=== PATIENT | female | born 1965 | race Two or more races ===

== ENCOUNTER 2022-03-14 11:23 | Inpatient (IN) | payer MEDICARE, MEDICAID ==
[~2022-03-14] VITALS: Ht 162.6 cm; Wt 59.9 kg
[~2022-03-14 11:23] MED LIST: ALBU18HF2 IH; ATROV IH; CRES10 PO; DOXY150T9 MT; FAMO20TA8 PO; HYDR-4009 MT; HYDR25TA PO; LEVO-65 MT; LIDO5CRE18 TP; LOSA50TA41 PO; METF-414 PO; METH-372 MT; METH500T PO; MORP15TA67 MT; P20 MT; PROM6.254 MT; [UNRECOGNIZED DRUG - OTHER] IM
[2022-03-14] MEDS ORDERED: ALBUTEROL (0.083%) 2.5MG/3ML NEB HHN STA (11:56)
[2022-03-14] MEDS ORDERED: METHYLPREDNISOLONE SOD SUCC 125 MG/2 ML VIAL IV STA (11:56)
[2022-03-14] MEDS ORDERED: MAGNESIUM 2 G PREMIX 50 ML IV STA (11:56)
[2022-03-14] MEDS ORDERED: IPRATROPIUM BROMIDE (0.02%) 0.5MG/2.5ML NEB HHN STA (11:56)
[2022-03-14 13:16] LABS: BASOPHILS % 0.3 % (0.0-2.0); EOSINOPHILS % 0.1 % (0.0-5.0); HEMATOCRIT. 45.7 % (36.0-48.0); HEMOGLOBIN. 15.3 g/dL (12.0-16.0); LYMPHOCYTES % 7.5 % (20.0-50.0); MEAN CORPUSCULAR VOLUME 95.5 fL (81.0-99.0); MEAN PLATELET VOLUME 9.2 fl (7.4-10.4); MONOCYTES % 2.7 % (2.0-8.0); NEUTROPHILS % 89.4 % (40.0-76.0); PLATELET 165 x1000/uL (130-400); RED BLOOD CELL COUNT 4.79 mill/uL (4.2-5.4); RED CELL DISTRIBUTION WIDTH 13.2 % (11.6-14.6)
[2022-03-14 13:29] LABS: CHLORIDE 105 mEq/L (98-107)
[2022-03-14 15:10] LABS: BG BASE EXCESS -0.5 mmol/L (-2.0-2.0); BG CARBOXYHEMOGLOBIN 1.3 % (0.5-1.5); BG DEOXYHEMOGLOBIN 9.2 % (0.0-5.0); BG FRACTION INSPIRED OXYGEN 21; BG HCO3 ACT 22.3 mmol/L (22.0-26.0); BG METHEMOGLOBIN 0.3 % (0.0-1.5); BG OXYGEN SATURATION 90.7 % (92.0-98.5); BG OXYHEMOGLOBIN 89.2 % (94.0-97.0); BG PCO2 31.8 mmHg (35.0-45.0); BG PH 7.463 (7.350-7.450); BG PO2 55.9 mmHg (75.0-100.0); BG SAMPLE SITE RIGHT RADIAL; BG TOTAL HEMOGLOBIN 15.5 g/dL (12.0-18.0); BG VENT MODE ROOM AIR
[2022-03-14] MEDS ORDERED: ALBUTEROL (0.083%) 2.5MG/3ML NEB HHN ONE (15:30)
[2022-03-14] MEDS ORDERED: ACETAMINOPHEN 325MG TABLET PO ONE (15:30)
[2022-03-14] MEDS ORDERED: DOCUSATE SODIUM 100MG CAPSULE PO PRN (16:45)
[2022-03-14] MEDS ORDERED: ACETAMINOPHEN 325MG TABLET PO PRN (16:45)
[2022-03-14] MEDS ORDERED: IPRATROPIUM/ALBUTEROL 0.5-3(2.5)MG/3ML NEB HHN PRN (16:45)
[2022-03-14] MEDS ORDERED: ONDANSETRON HCL 4MG/2ML INJ IV PRN (16:45)
[2022-03-14] MEDS ORDERED: KETOROLAC 15MG/ML VIAL IV NR (17:00)
[2022-03-14] MEDS ORDERED: KETOROLAC 15MG/ML VIAL IV ONE (17:00)
[2022-03-14] MEDS ORDERED: LEVOFLOXACIN 500MG PREMIX 100 ML IV SCH (18:00)
[2022-03-14] MEDS: METHYLPREDNISOLONE SOD SUCC 125 MG/2 ML VIAL IV SCH ×2 (19:07→22:46)
[2022-03-14] MEDS: AMLODIPINE 10MG TABLET PO SCH (19:07)
[2022-03-14] MEDS: ENOXAPARIN 40MG/0.4ML SYR SUBCUT SCH (21:47)
[2022-03-15 04:33] LABS: BASOPHILS % 0.3 % (0.0-2.0); HEMATOCRIT. 41.4 % (36.0-48.0); HEMOGLOBIN. 14.1 g/dL (12.0-16.0); LYMPHOCYTES % 8.9 % (20.0-50.0); MEAN CORPUSCULAR HEMOGLOBIN 32.5 pg (28.0-32.0); MEAN CORPUSCULAR VOLUME 95.3 fL (81.0-99.0); MEAN PLATELET VOLUME 9.1 fl (7.4-10.4); MONOCYTES % 2.9 % (2.0-8.0); NEUTROPHILS % 87.9 % (40.0-76.0); PLATELET 162 x1000/uL (130-400); RED BLOOD CELL COUNT 4.34 mill/uL (4.2-5.4); RED CELL DISTRIBUTION WIDTH 13.4 % (11.6-14.6)
[2022-03-15 04:41] LABS: CHLORIDE 109 mEq/L (98-107)
[2022-03-15] MEDS: METHYLPREDNISOLONE SOD SUCC 125 MG/2 ML VIAL IV SCH ×4 (04:45→21:52)
[2022-03-15 04:52] LABS: HDL CHOLESTEROL 68 mg/dL (40-59); LDL CHOLESTEROL 107 mg/dL (5-100)
[2022-03-15] MEDS ORDERED: NALOXONE HCL 0.4MG/ML VIAL IV PRN (10:15)
[2022-03-15] MEDS: NICOTINE 21MG PATCH TD SCH (10:58)
[2022-03-15] MEDS: HYDROCHLOROTHIAZIDE 25MG TABLET PO SCH (11:04)
[2022-03-15] MEDS: METHIMAZOLE 5MG TABLET PO SCH (11:04)
[2022-03-15] MEDS: FAMOTIDINE 20MG TABLET PO SCH ×2 (11:04→18:14)
[2022-03-15] MEDS: AMLODIPINE 10MG TABLET PO SCH (11:04)
[2022-03-15] MEDS: LOSARTAN POTASSIUM 50 MG TABLET PO SCH (11:05)
[2022-03-15 11:28] VITALS: BP 135/43
[2022-03-15] MEDS: BENZONATATE 100MG CAPSULE PO PRN ×2 (11:49→21:50)
[2022-03-15] MEDS: TRAMADOL 50MG TABLET PO PRN ×2 (11:51→18:44)
[2022-03-15] MEDS ORDERED: IRBE150T24 PO (12:36)
[2022-03-15 16:00] VITALS: BP 118/60
[2022-03-15] MEDS: LEVOFLOXACIN 500MG PREMIX 100 ML IV SCH (18:13)
[2022-03-15] MEDS: GUAIFENESIN 200MG/10ML SUGAR FREE UDC PO PRN (18:45)
[2022-03-15 20:00] VITALS: BP 133/76
[2022-03-15] MEDS ORDERED: DEXTROSE 50% WATER 50ML SYRINGE IV PRN (20:30)
[2022-03-15] MEDS: ENOXAPARIN 40MG/0.4ML SYR SUBCUT SCH (21:50)
[2022-03-15] MEDS: INSULIN LISPRO 100 UNITS/ML SUBCUT SCH (21:50)
[2022-03-15] MEDS: BLOOD SUGAR DIAGNOSTIC STRIP TEST SCH (21:51)
[2022-03-16] VITALS: BP 130/63
[2022-03-16] MEDS: IPRATROPIUM/ALBUTEROL 0.5-3(2.5)MG/3ML NEB HHN SCH ×4 (01:57→20:08)
[2022-03-16] MEDS: TRAMADOL 50MG TABLET PO PRN ×3 (02:05→18:14)
[2022-03-16 04:00] VITALS: BP 132/65
[2022-03-16] MEDS: METHYLPREDNISOLONE SOD SUCC 125 MG/2 ML VIAL IV SCH ×4 (04:28→22:45)
[2022-03-16] MEDS: MAGNESIUM/ALUMINUM HYDROXIDE/SIMETHICONE 30ML UDC PO PRN (04:36)
[2022-03-16 08:00] VITALS: BP 111/64
[2022-03-16] MEDS: BLOOD SUGAR DIAGNOSTIC STRIP TEST SCH ×4 (08:00→22:00)
[2022-03-16] MEDS: AMLODIPINE 10MG TABLET PO SCH (09:00)
[2022-03-16] MEDS: HYDROCHLOROTHIAZIDE 25MG TABLET PO SCH (09:00)
[2022-03-16] MEDS: LOSARTAN POTASSIUM 50 MG TABLET PO SCH (09:00)
[2022-03-16] MEDS: METHIMAZOLE 5MG TABLET PO SCH (10:23)
[2022-03-16] MEDS: FAMOTIDINE 20MG TABLET PO SCH ×2 (10:24→18:00)
[2022-03-16] MEDS: NICOTINE 21MG PATCH TD SCH (10:32)
[2022-03-16] MEDS: GUAIFENESIN 200MG/10ML SUGAR FREE UDC PO PRN ×2 (10:57→18:00)
[2022-03-16 12:00] VITALS: BP 129/65
[2022-03-16] MEDS: INSULIN LISPRO 100 UNITS/ML SUBCUT SCH ×3 (13:36→22:47)
[2022-03-16 16:00] VITALS: BP 108/53
[2022-03-16] MEDS: MONTELUKAST SODIUM 10MG TABLET PO SCH (18:01)
[2022-03-16] MEDS: LEVOFLOXACIN 500MG PREMIX 100 ML IV SCH (18:14)
[2022-03-16 20:00] VITALS: BP 134/57
[2022-03-16] MEDS ORDERED: GUAIFENESIN/CODEINE 100-10MG/5ML UDC PO PRN (21:15)
[2022-03-16] MEDS: ENOXAPARIN 40MG/0.4ML SYR SUBCUT SCH (22:46)
[2022-03-16] MEDS: BENZONATATE 100MG CAPSULE PO PRN (23:41)
[2022-03-16] MEDS: GUAIFENESIN/CODEINE 200-20MG/10ML UDC PO PRN (23:45)
[2022-03-17] VITALS (7 sets, daily range): BP systolic 109–134; BP diastolic 45–64
[2022-03-17] MEDS: IPRATROPIUM/ALBUTEROL 0.5-3(2.5)MG/3ML NEB HHN SCH ×6 (00:15→21:25)
[2022-03-17] MEDS: TRAMADOL 50MG TABLET PO PRN ×3 (02:20→19:37)
[2022-03-17] MEDS: METHYLPREDNISOLONE SOD SUCC 125 MG/2 ML VIAL IV SCH ×5 (03:52→22:33)
[2022-03-17] MEDS: BLOOD SUGAR DIAGNOSTIC STRIP TEST SCH ×4 (07:40→22:33)
[2022-03-17] MEDS: INSULIN LISPRO 100 UNITS/ML SUBCUT SCH ×4 (08:10→22:30)
[2022-03-17] MEDS: LOSARTAN POTASSIUM 50 MG TABLET PO SCH (09:29)
[2022-03-17] MEDS: HYDROCHLOROTHIAZIDE 25MG TABLET PO SCH (09:29)
[2022-03-17] MEDS: NICOTINE 21MG PATCH TD SCH (09:29)
[2022-03-17] MEDS: AMLODIPINE 10MG TABLET PO SCH (09:29)
[2022-03-17] MEDS: METHIMAZOLE 5MG TABLET PO SCH (09:29)
[2022-03-17] MEDS: FAMOTIDINE 20MG TABLET PO SCH ×2 (09:29→16:42)
[2022-03-17] MEDS: LEVOFLOXACIN 500MG TABLET PO SCH (13:26)
[2022-03-17] MEDS: MONTELUKAST SODIUM 10MG TABLET PO SCH (16:42)
[2022-03-17] MEDS: GUAIFENESIN/CODEINE 200-20MG/10ML UDC PO PRN ×2 (16:42→22:49)
[2022-03-17] MEDS: ENOXAPARIN 40MG/0.4ML SYR SUBCUT SCH (22:31)
[2022-03-17] MEDS: BENZONATATE 100MG CAPSULE PO PRN (22:31)
[2022-03-18] VITALS: BP 107/57
[2022-03-18] MEDS: IPRATROPIUM/ALBUTEROL 0.5-3(2.5)MG/3ML NEB HHN SCH ×6 (00:45→21:29)
[2022-03-18 04:00] VITALS: BP 121/56
[2022-03-18] MEDS: METHYLPREDNISOLONE SOD SUCC 125 MG/2 ML VIAL IV SCH ×4 (04:17→22:27)
[2022-03-18] MEDS: TRAMADOL 50MG TABLET PO PRN ×3 (04:31→20:17)
[2022-03-18] MEDS: BLOOD SUGAR DIAGNOSTIC STRIP TEST SCH ×4 (06:00→20:18)
[2022-03-18 08:00] VITALS: BP 109/54
[2022-03-18 08:32] LABS: BG BASE EXCESS 1.6 mmol/L (-2.0-2.0); BG CARBOXYHEMOGLOBIN 0.3 % (0.5-1.5); BG DEOXYHEMOGLOBIN 2.3 % (0.0-5.0); BG FRACTION INSPIRED OXYGEN 32; BG HCO3 ACT 26.2 mmol/L (22.0-26.0); BG METHEMOGLOBIN 0.3 % (0.0-1.5); BG OXYGEN SATURATION 97.7 % (92.0-98.5); BG OXYHEMOGLOBIN 97.1 % (94.0-97.0); BG PCO2 40.9 mmHg (35.0-45.0); BG PH 7.424 (7.350-7.450); BG PO2 100.6 mmHg (75.0-100.0); BG SAMPLE SITE LEFT RADIAL; BG TOTAL HEMOGLOBIN 14.9 g/dL (12.0-18.0); BG VENT MODE NASAL CANNULA
[2022-03-18] MEDS: METHIMAZOLE 5MG TABLET PO SCH (09:16)
[2022-03-18] MEDS: FAMOTIDINE 20MG TABLET PO SCH ×2 (09:16→18:38)
[2022-03-18] MEDS: GUAIFENESIN/CODEINE 200-20MG/10ML UDC PO PRN ×2 (09:16→19:41)
[2022-03-18] MEDS: LEVOFLOXACIN 500MG TABLET PO SCH (09:16)
[2022-03-18] MEDS: HYDROCHLOROTHIAZIDE 25MG TABLET PO SCH (09:16)
[2022-03-18] MEDS: LOSARTAN POTASSIUM 50 MG TABLET PO SCH (09:16)
[2022-03-18] MEDS: AMLODIPINE 10MG TABLET PO SCH (09:17)
[2022-03-18] MEDS: NICOTINE 21MG PATCH TD SCH (09:18)
[2022-03-18] MEDS: INSULIN LISPRO 100 UNITS/ML SUBCUT SCH ×4 (09:19→20:18)
[2022-03-18 12:00] VITALS: BP 106/46
[2022-03-18] MEDS: BENZONATATE 100MG CAPSULE PO PRN (15:55)
[2022-03-18 16:00] VITALS: BP 107/40
[2022-03-18] MEDS: MONTELUKAST SODIUM 10MG TABLET PO SCH (18:38)
[2022-03-18 20:00] VITALS: BP 104/60
[2022-03-18] MEDS: ENOXAPARIN 40MG/0.4ML SYR SUBCUT SCH (20:17)
[2022-03-18] MEDS ORDERED: TERBUTALINE SULFATE 1MG/ML VIAL SUBCUT NR (20:30)
[2022-03-19] VITALS: BP 110/49
[2022-03-19] MEDS: IPRATROPIUM/ALBUTEROL 0.5-3(2.5)MG/3ML NEB HHN SCH ×6 (01:31→20:42)
[2022-03-19] MEDS: GUAIFENESIN/CODEINE 200-20MG/10ML UDC PO PRN ×3 (01:54→17:03)
[2022-03-19 04:00] VITALS: BP 102/61
[2022-03-19] MEDS: TRAMADOL 50MG TABLET PO PRN ×3 (05:54→20:27)
[2022-03-19] MEDS: METHYLPREDNISOLONE SOD SUCC 125 MG/2 ML VIAL IV SCH ×2 (05:54→09:09)
[2022-03-19] MEDS: INSULIN LISPRO 100 UNITS/ML SUBCUT SCH ×4 (05:56→20:28)
[2022-03-19] MEDS: BLOOD SUGAR DIAGNOSTIC STRIP TEST SCH ×4 (05:56→20:27)
[2022-03-19] MEDS: BENZONATATE 100MG CAPSULE PO PRN ×3 (06:02→20:27)
[2022-03-19 08:00] VITALS: BP 96/45
[2022-03-19] MEDS: HYDROCHLOROTHIAZIDE 25MG TABLET PO SCH (09:00)
[2022-03-19] MEDS: AMLODIPINE 10MG TABLET PO SCH (09:00)
[2022-03-19] MEDS: LOSARTAN POTASSIUM 50 MG TABLET PO SCH (09:00)
[2022-03-19] MEDS: METHIMAZOLE 5MG TABLET PO SCH (09:02)
[2022-03-19] MEDS: FAMOTIDINE 20MG TABLET PO SCH ×2 (09:02→17:03)
[2022-03-19] MEDS: NICOTINE 21MG PATCH TD SCH (09:03)
[2022-03-19] MEDS ORDERED: PRED10TA MT (10:35)
[2022-03-19 12:00] VITALS: BP 110/60
[2022-03-19 16:00] VITALS: BP 96/55
[2022-03-19] MEDS: MONTELUKAST SODIUM 10MG TABLET PO SCH (16:55)
[2022-03-19] MEDS: METHYLPREDNISOLONE SOD SUCC 40 MG/ML VIAL IV SCH (17:03)
[2022-03-19 17:29] LABS: T4 FREE 0.86 ng/dL (0.76-1.46)
[2022-03-19 20:00] VITALS: BP 107/64
[2022-03-19] MEDS: ENOXAPARIN 40MG/0.4ML SYR SUBCUT SCH (20:26)
[2022-03-20] VITALS (7 sets, daily range): BP systolic 91–121; BP diastolic 43–67
[2022-03-20] MEDS: IPRATROPIUM/ALBUTEROL 0.5-3(2.5)MG/3ML NEB HHN SCH ×6 (00:57→20:35)
[2022-03-20] MEDS: GUAIFENESIN/CODEINE 200-20MG/10ML UDC PO PRN ×4 (00:58→21:31)
[2022-03-20] MEDS: METHYLPREDNISOLONE SOD SUCC 40 MG/ML VIAL IV SCH ×3 (02:32→17:32)
[2022-03-20] MEDS: TRAMADOL 50MG TABLET PO PRN ×4 (02:34→21:30)
[2022-03-20] MEDS: BENZONATATE 100MG CAPSULE PO PRN (05:49)
[2022-03-20] MEDS: BLOOD SUGAR DIAGNOSTIC STRIP TEST SCH ×4 (05:50→21:30)
[2022-03-20] MEDS: INSULIN LISPRO 100 UNITS/ML SUBCUT SCH ×4 (05:50→21:30)
[2022-03-20] MEDS: NICOTINE 21MG PATCH TD SCH (08:43)
[2022-03-20] MEDS: AMLODIPINE 10MG TABLET PO SCH (08:44)
[2022-03-20] MEDS: HYDROCHLOROTHIAZIDE 25MG TABLET PO SCH (08:44)
[2022-03-20] MEDS: METHIMAZOLE 5MG TABLET PO SCH (08:44)
[2022-03-20] MEDS: FAMOTIDINE 20MG TABLET PO SCH ×2 (08:45→16:06)
[2022-03-20] MEDS: LOSARTAN POTASSIUM 50 MG TABLET PO SCH (08:45)
[2022-03-20 12:47] LABS: BG BASE EXCESS 1.9 mmol/L (-2.0-2.0); BG CARBOXYHEMOGLOBIN 1.1 % (0.5-1.5); BG DEOXYHEMOGLOBIN 9.8 % (0.0-5.0); BG FRACTION INSPIRED OXYGEN 21; BG HCO3 ACT 26.3 mmol/L (22.0-26.0); BG METHEMOGLOBIN 0.2 % (0.0-1.5); BG OXYGEN SATURATION 90.1 % (92.0-98.5); BG OXYHEMOGLOBIN 88.9 % (94.0-97.0); BG PCO2 40.2 mmHg (35.0-45.0); BG PH 7.433 (7.350-7.450); BG PO2 55.9 mmHg (75.0-100.0); BG SAMPLE SITE LEFT RADIAL; BG TOTAL HEMOGLOBIN 14.8 g/dL (12.0-18.0); BG VENT MODE ROOM AIR
[2022-03-20] MEDS ORDERED: ACETYLCYSTEINE 200MG/ML 20% VIAL 4ML INH SCH (14:00)
[2022-03-20] MEDS: MONTELUKAST SODIUM 10MG TABLET PO SCH (16:06)
[2022-03-20] MEDS: ENOXAPARIN 40MG/0.4ML SYR SUBCUT SCH (21:28)
[2022-03-21] VITALS: BP 99/47
[2022-03-21] MEDS: IPRATROPIUM/ALBUTEROL 0.5-3(2.5)MG/3ML NEB HHN SCH ×6 (00:47→21:35)
[2022-03-21] MEDS: ACETYLCYSTEINE 100MG/ML 10% VIAL 4ML INH SCH ×4 (00:48→17:07)
[2022-03-21] MEDS: TRAMADOL 50MG TABLET PO PRN ×3 (03:59→18:23)
[2022-03-21] MEDS: GUAIFENESIN/CODEINE 200-20MG/10ML UDC PO PRN ×2 (03:59→18:10)
[2022-03-21] MEDS: METHYLPREDNISOLONE SOD SUCC 40 MG/ML VIAL IV SCH ×3 (03:59→18:10)
[2022-03-21 04:00] VITALS: BP 104/52
[2022-03-21] MEDS: BLOOD SUGAR DIAGNOSTIC STRIP TEST SCH ×4 (05:35→20:45)
[2022-03-21] MEDS: INSULIN LISPRO 100 UNITS/ML SUBCUT SCH ×4 (05:35→20:45)
[2022-03-21 08:00] VITALS: BP 141/83
[2022-03-21] MEDS: HYDROCHLOROTHIAZIDE 25MG TABLET PO SCH (09:00)
[2022-03-21] MEDS: METHIMAZOLE 5MG TABLET PO SCH (09:56)
[2022-03-21] MEDS: BENZONATATE 100MG CAPSULE PO PRN ×3 (09:56→20:50)
[2022-03-21] MEDS: LOSARTAN POTASSIUM 50 MG TABLET PO SCH (09:56)
[2022-03-21] MEDS: MAGNESIUM/ALUMINUM HYDROXIDE/SIMETHICONE 30ML UDC PO PRN (09:57)
[2022-03-21] MEDS: AMLODIPINE 10MG TABLET PO SCH (09:57)
[2022-03-21] MEDS: FAMOTIDINE 20MG TABLET PO SCH ×2 (10:29→18:31)
[2022-03-21 12:00] VITALS: BP 121/52
[2022-03-21 16:00] VITALS: BP 109/74
[2022-03-21] MEDS: MONTELUKAST SODIUM 10MG TABLET PO SCH (18:23)
[2022-03-21] MEDS: NICOTINE 21MG PATCH TD SCH (18:25)
[2022-03-21 20:00] VITALS: BP 104/53
[2022-03-21] MEDS: ENOXAPARIN 40MG/0.4ML SYR SUBCUT SCH (20:45)
[2022-03-22] VITALS (7 sets, daily range): BP systolic 109–115; BP diastolic 56–77
[2022-03-22] MEDS: IPRATROPIUM/ALBUTEROL 0.5-3(2.5)MG/3ML NEB HHN SCH ×6 (01:03→21:52)
[2022-03-22] MEDS: TRAMADOL 50MG TABLET PO PRN ×3 (01:03→16:52)
[2022-03-22] MEDS: METHYLPREDNISOLONE SOD SUCC 40 MG/ML VIAL IV SCH ×3 (01:03→18:21)
[2022-03-22] MEDS: GUAIFENESIN/CODEINE 200-20MG/10ML UDC PO PRN ×2 (01:03→20:53)
[2022-03-22] MEDS: ACETYLCYSTEINE 100MG/ML 10% VIAL 4ML INH SCH ×3 (01:05→16:23)
[2022-03-22] MEDS: INSULIN LISPRO 100 UNITS/ML SUBCUT SCH ×4 (05:55→20:54)
[2022-03-22] MEDS: BLOOD SUGAR DIAGNOSTIC STRIP TEST SCH ×4 (05:55→20:33)
[2022-03-22] MEDS: NICOTINE 21MG PATCH TD SCH (09:09)
[2022-03-22] MEDS: HYDROCHLOROTHIAZIDE 25MG TABLET PO SCH (09:09)
[2022-03-22] MEDS: FAMOTIDINE 20MG TABLET PO SCH ×2 (09:10→17:06)
[2022-03-22] MEDS: LOSARTAN POTASSIUM 50 MG TABLET PO SCH (09:11)
[2022-03-22] MEDS: METHIMAZOLE 5MG TABLET PO SCH (09:11)
[2022-03-22] MEDS: AMLODIPINE 10MG TABLET PO SCH (09:22)
[2022-03-22] MEDS ORDERED: SODIUM CHLORIDE 3% FOR INH 4ML UD NEB INH NR (15:30)
[2022-03-22] MEDS: MONTELUKAST SODIUM 10MG TABLET PO SCH (17:06)
[2022-03-22] MEDS: ENOXAPARIN 40MG/0.4ML SYR SUBCUT SCH (20:33)
[2022-03-23] VITALS: BP 90/41
[2022-03-23] MEDS: TRAMADOL 50MG TABLET PO PRN ×2 (00:47→09:27)
[2022-03-23] MEDS: ACETYLCYSTEINE 100MG/ML 10% VIAL 4ML INH SCH ×2 (01:28→08:40)
[2022-03-23] MEDS: IPRATROPIUM/ALBUTEROL 0.5-3(2.5)MG/3ML NEB HHN SCH ×4 (01:28→12:29)
[2022-03-23] MEDS: METHYLPREDNISOLONE SOD SUCC 40 MG/ML VIAL IV SCH ×2 (01:53→10:35)
[2022-03-23 04:01] VITALS: BP 110/70
[2022-03-23] MEDS: INSULIN LISPRO 100 UNITS/ML SUBCUT SCH ×2 (05:46→13:28)
[2022-03-23] MEDS: BLOOD SUGAR DIAGNOSTIC STRIP TEST SCH ×2 (05:46→12:40)
[2022-03-23 07:51] LABS: HEMATOCRIT 39.2 % (36.0-48.0); HEMOGLOBIN 13.3 g/dL (12.0-16.0); MEAN CORPUSCULAR HEMOGLOBIN 32.4 pg (28.0-32.0); MEAN CORPUSCULAR VOLUME 95.2 fL (81.0-99.0); PLATELET 174 x1000/uL (130-400); RED BLOOD CELL COUNT 4.12 mill/uL (4.2-5.4); RED CELL DISTRIBUTION WIDTH 12.5 % (11.6-14.6)
[2022-03-23] MEDS: LOSARTAN POTASSIUM 50 MG TABLET PO SCH (09:00)
[2022-03-23] MEDS: AMLODIPINE 10MG TABLET PO SCH (09:00)
[2022-03-23] MEDS: HYDROCHLOROTHIAZIDE 25MG TABLET PO SCH (09:05)
[2022-03-23] MEDS: NICOTINE 21MG PATCH TD SCH (09:05)
[2022-03-23] MEDS: FAMOTIDINE 20MG TABLET PO SCH (09:05)
[2022-03-23] MEDS: METHIMAZOLE 5MG TABLET PO SCH (09:05)
[2022-03-23 09:27] VITALS: BP 99/51
[2022-03-24 16:03] LABS: CHLORIDE 101 mEq/L (98-107)
== END 2022-03-23 13:48 | disposition home or self-care (01) | DRG 189 ==
LOC: ER 11:23 → 7WST 15:22 → EDBEDREQ 15:27 → EDBEDREQSVC 15:27 → EDBEDREQTM 15:27 → ENRESERV 03-15 07:20
PROVIDERS: ADMIT Hospitalist; ATTEND Hospitalist
DX: J96.01 Acute respiratory failure with hypoxia (principal); J44.1 Chronic obstructive pulmonary disease with (acute) exacerbation; J45.901 Unspecified asthma with (acute) exacerbation; E44.1 Mild protein-calorie malnutrition; E11.9 Type 2 diabetes mellitus without complications; E05.90 Thyrotoxicosis, unspecified without thyrotoxic crisis or storm; E78.00 Pure hypercholesterolemia, unspecified; I10 Essential (primary) hypertension; E78.5 Hyperlipidemia, unspecified; F17.210 Nicotine dependence, cigarettes, uncomplicated; Z90.710 Acquired absence of both cervix and uterus; Z88.0 Allergy status to penicillin; Z88.8 Allergy status to other drugs, medicaments and biological substances; Z79.899 Other long term (current) drug therapy; Z68.22 Body mass index [BMI] 22.0-22.9, adult
CPT/HCPCS: 36415; 36600; 71045; 80048; 80053; 80061; 82375; 82805; 82962; 83036; 83880; 84439; 84443; 84484; 85025; 85027; 87426; 93970; 94618; 94640; 99285; J1650; J1815; J1885; J1956; J2920; J2930; J3105; J3475; J7608